=== PATIENT | male | born 1995 | race African-American/Black ===

== ENCOUNTER 2017-03-16 23:36 | Emergency (ER) | payer SELFPAY ==
--- NOTE | ~2017-03-16 | CT17 ---
[facility] A Service [facility] RADIOLOGY TEXT RESULTS PATIENT: TITUS GUAN JR LOCATION: [facility] : [birth year] UNIT #: [id number] AGE: [address]: CONNOR CELESTIN APRN SEX: M ORDER DR: [id number] [facility] [address] [place], [place] [address] [id number] E MR#: [id number] Acc #: [id number] NAME: TITUS GUAN JR : 1995 SEX: M STUDY DATE/TIME: 03/17/2017 5:01 UNIT: [facility] ROOM: STUDY DESCRIPTION: CT Angio Head Attending Physician: Connor Celestin Aprn Ordering Physician: Connor Celestin Aprn Primary Care Physician: Primary Care Physician No MEDICAL IMAGING REPORT This report is preliminary unless electronic signature is present EXAM Head and neck CT angiogram 03/17 INDICATIONS Loud constant ringing in the left ear intermittently for 2 weeks. Patient is a boxer. TECHNIQUE Axial images were obtained through the head and neck following IV contrast administration. 3-D reformats were obtained. No comparison CTA. This CT exam was performed with one or more of the following radiation dose reduction techniques: automatic exposure control, adjustment of mA and/or kV according to patient size, and iterative reconstruction. FINDINGS In the neck, there is no evidence of carotid or vertebral dissection. No plaque disease is seen. There is 0% stenosis by NASCET criteria. The right vertebral artery is dominant, but both are widely patent. Intracranially, no flow-limiting stenosis by NASCET criteria is seen. There is no vessel cutoff. No aneurysm is identified. The major dural venous sinuses are patent. There are patent bilateral posterior communicating arteries. Soft tissues of the head and neck are unremarkable. Visualized mastoid air cells and middle ear cavities on both sides are clear. IMPRESSION Negative head and neck CT angiogram. 0% stenosis in the neck by NASCET criteria. No flow-limiting stenosis seen intracranially. There is no vessel cutoff and there is no intracranial aneurysm. No evidence of carotid or vertebral dissection. [facility] A Service of [facility] RADIOLOGY TEXT RESULTS PATIENT: TITUS GUAN JR [id number] : [birth year] UNIT #: [id number] AGE: [address]: CONNOR CELESTIN APRN SEX: M ORDER DR: Dictated by... Andrea Womack Jr., M.D. THIS IS AN ELECTRONICALLY VERIFIED REPORT Andrea Womack Jr., M.D. at 03/17/2017 5:01 PM OH/nicolette TD: 03/17/2017 13:40 JOB #: [id number] MEDICAL IMAGING REPORT Page 1 of 1 COPY
--- NOTE | ~2017-03-16 | CT71 ---
[facility] A Service of [facility] RADIOLOGY TEXT RESULTS PATIENT: TITUS GUAN JR LOCATION: [facility] : [birth year] UNIT #: [id number] AGE: [address]: CONNOR CELESTIN APRN SEX: M ORDER DR: [id number] [facility] [address] [place], [place] [address] [id number] E MR#: [id number] Acc #: [id number] NAME: TITUS GUAN JR : 1995 SEX: M STUDY DATE/TIME: 03/17/2017 4:48 UNIT: [facility] ROOM: STUDY DESCRIPTION: CT Head Wo Contrast Attending Physician: Connor Celestin Aprn Ordering Physician: Connor Celestin Aprn Primary Care Physician: Primary Care Physician No MEDICAL IMAGING REPORT This report is preliminary unless electronic signature is present EXAM CT head, noncontrast, 03/17/2017 HISTORY 21-year-old male in the ED complaining of 2-week history of intermittent left ear tinnitus. The patient is a boxer. TECHNIQUE CT examination of the head without IV contrast. This CT examination was performed with one or more of the following radiation dose reduction techniques: automatic exposure control, adjustment of mA and/or kV according to patient size, and iterative reconstruction. FINDINGS The examination is negative. No evidence of intracranial hemorrhage, mass, mass effect, cerebral edema, hydrocephalus or additional abnormality. IMPRESSION Negative head CT examination. Dictated by... Ralph Arzola M.D. THIS IS AN ELECTRONICALLY VERIFIED REPORT Ralph Arzola M.D. at 03/17/2017 9:58 PM LUANA/lauren TD: 03/17/2017 09:34 JOB #: [id number] MEDICAL IMAGING REPORT Page 1 of 1 COPY
[2017-03-17 04:26] LABS: CALCIUM SERUM 9.4 mg/dL (8.4-10.2); GLOM FILT RATE Estimated 123.3 mL/min (>60); POTASSIUM 3.6 mmol/L (3.5-5.1)
== END 2017-03-17 06:50 | disposition home or self-care (01) ==
LOC: CED 23:36
PROVIDERS: Nurse Practitioner Family
DX: H93.12 Tinnitus, left ear (principal); H91.91 Unspecified hearing loss, right ear
CPT/HCPCS: 36415; 70450; 70496; 70498; 80048; 99284; Q9967